=== PATIENT | male | born 1960 | race Caucasian/White ===

== ENCOUNTER 2024-07-24 08:45 | Outpatient (REF) | payer OTHER, SELFPAY ==
--- NOTE | ~2024-07-24 | XR_ITS ---
EXAMINATION: XR SHOULDER, RIGHT CLINICAL INFORMATION: M25.519 - Pain in unspecified shoulder COMPARISON: None available. TECHNIQUE: AP external rotation, Grashey, scapular Y, and axillary views of the right shoulder. FINDINGS: Marginal osteophyte formation in the inferior medial humeral head. Focal small rounded calcifications in the soft tissues in the anterior glenohumeral joint capsule best seen on the axial projection. No acute cortical disruption or malalignment. XR/XR shoulder RT min 2V IMPRESSION: Mild degenerative changes without acute fracture or dislocation. Questionable osteochondromatosis, glenohumeral joint. Electronically signed by: Steve Noble MD 07/24/2024 09:18 AM EDT
--- OUTSIDE RECORDS SUMMARY | 2024-07-25 08:59 | XMS_ITS | Clinical Summary ---
Author Organization [facility] Address [address] [place] [address] Phone Care Team Providers Care Teacher Emotionally Impaired Name Role Phone Angela Kohler MD Primary Care Provider [phone] Allergies No known active allergies Medications bisacodyL [...] Care Team Description 05/08/2024 Telephone Gastroenterology - [place] [address] [facility] [address] [place] [address] Brien Adamson, DO special procedure from Last 3 Months Immunizations Name Administration Dates Next Due Influenza trivalent, 0.5mL, preservative free (Fluarix; FluLaval; Fluzone) ages 6mo and older (Afluria) 3 years and older 01/17/2010,01/26/2009,01/15/2008 Tdap Tetanus diptheria acell ular pertussis (Boostrix; Adacel) 7yo and older 12/04/2022,01/15/2008 Surgical History Surgery Date Site/Laterality Comments COLONOSCOPY 2012 PROCEDURE: OK COLONOSCOPY FLX DX W/COLLJ SPEC WHEN PFRMD; COMMENT: normal COLONOSCOPY PROCEDURE: HISTORICAL COLONOSCOPY; COMMENT: Estrada; negative; for abd pain. KNEE ARTHROSCOPY W/ MENISCAL REPAIR PROCEDURE: OK ARTHROSCOPY KNEE W/MENISCUS RPR MEDIAL/LATERAL Medical History [...] LAB CHEMISTRY METHOD 07/18/2024 4:45 PM EDT [facility] Blood Venous blood specimen / Unknown Venipuncture / Unknown 07/18/2024 8:58 AM EDT 07/18/2024 8:58 AM EDT Narrative [facility] - 07/18/2024 4:45 PM EDT The Siemens Advia Centaur Chemiluminescent Immunoassay is used. Results obtained with different assay methods or kits cannot be used interchangeably. Results cannot be interpreted as absolute evidence of the presence or absence of malignant disease. us Prasad [facility] LAB BLOOD ORDERABLES Fin al Result [facility] [address] [place] [address], [place] [phone] * (ABNORMAL) Lipid panel with reflex to direct LDL (07/18/2024 8:58 AM EDT) [facility] Cholesterol 190 0 - 200 mg/dL LAB CHEMISTRY METHOD 07/18/2024 3:08 PM EDT [facility] Triglycerides 77 0 - 150 mg/dL LAB CHEMISTRY METHOD 07/18/2024 3:08 PM EDT [facility] HDL 65 >=40 mg/dL LAB CHEMISTRY METHOD 07/18/2024 3:08 PM EDT [facility] LDL Calculated 110(H) 0 - 100 mg/dL LAB CHEMISTRY METHOD 07/18/2024 3:08 PM EDT [facility] VLDL Cholesterol Juan Diego 15.4 mg/dL LAB CHEMISTRY METHOD 07/18/2024 3:08 PM EDT [facility] Non HDL Chol. (LDL+VLDL) 125 <145 mg/dL LAB CHEMISTRY METHOD 07/18/2024 3:08 PM EDT [facility] Chol/HDL Ratio 2.9 0.0 - 4.4 LAB CHEMISTRY METHOD 07/18/2024 3:08 PM EDT [facility] Blood Venous blood specimen / Unknown Venipuncture / Unknown 07/18/2024 8:58 AM EDT 07/18/2024 8:58 AM EDT us Prasad [facility] LAB BLOOD ORDERABLES Fin al Result [facility] [address] [place] [address], * Complete blood count (07/18/2024 8:58 AM EDT) WBC 7.7 4.8 - 10.8 K/mcL LAB HEMETOLOGY METHOD 07/18/2024 10:[address] [facility] RBC 5.10 4.50 - 5.50 M/[facility] LAB HEMETOLOGY METHOD 07/18/2024 10:[address] [facility] Hemoglobin 14.9 13.5 - 17.5 g/dL LAB HEMETOLOGY METHOD 07/18/2024 10:[address] [facility] Hematocrit 44.0 42.0 - 54.0 % LAB HEMETOLOGY METHOD 07/18/2024 10:[address] [facility] MCV 85.8 79.0 - 98.0 FL LAB HEMETOLOGY METHOD 07/18/2024 10:[address] [facility] MCH 29.0 27.0 - 32.0 pcg LAB HEMETOLOGY METHOD 07/18/2024 10:[address] [facility] MCHC 33.9 32.0 - 37.0 g/dL LAB HEMETOLOGY METHOD 07/18/2024 10:[address] [facility] RDW 13.3 11.0 - 15.0 % LAB HEMETOLOGY METHOD 07/18/2024 10:[address] [facility] Platelets 255 130 - 400 K/mcL LAB HEMETOLOGY METHOD 07/18/2024 10:17 AM EDT [facility] MPV 9.6 7.0 - 11.0 FL LAB HEMETOLOGY METHOD 07/18/2024 10:17 AM EDT [facility] NRBC 0.0 <1.0 % LAB HEMETOLOGY METHOD 07/18/2024 10:17 AM EDT [facility] NRBC Absolute 0.00 <0.10 K/mcL LAB HEMETOLOGY METHOD 07/18/2024 10:17 AM EDT [facility] Blood Venous blood specimen / Unknown Venipuncture / Unknown 07/18/2024 8:58 AM EDT 07/18/2024 8:58 AM EDT Pras[facility] LAB BLOOD ORDERABLES Fin al Result Performing Organization Address City/[facility]/ZIP Co de Phone Number [facility] [address] [place] [address], * Thyroid stimulating hormone (07/18/2024 8:58 AM EDT) Pathologist [facility] TSH 0.89 0.40 - 4.00 mcIU/mL LAB CHEMISTRY METHOD 07/18/2024 5:51 PM EDT [facility] Blood Venous blood specimen / Unknown Venipuncture / Unknown 07/18/2024 8:58 AM EDT 07/18/2024 8:58 AM EDT Prasad [facility] LAB BLOOD ORDERABLES Fin al Result [facility] [address] [place] [address], [place] [phone] * (ABNORMAL) Comprehensive metabolic panel (07/18/2024 8:58 AM EDT) Pathologist [facility] Sodium 141 133 - 145 mmol/L LAB CHEMISTRY METHOD 07/18/2024 3:[address] [facility] Potassium 4.6 3.5 - 5.5 mmol/L LAB CHEMISTRY METHOD 07/18/2024 3:[address] [facility] Chloride 108 96 - 110 mmol/L LAB CHEMISTRY METHOD 07/18/2024 3:[address] [facility] CO2 26 21 - 32 mmol/L LAB CHEMISTRY METHOD 07/18/2024 3:[address] [facility] Anion Gap 7 3 - 11 LAB CHEMISTRY METHOD 07/18/2024 3:[address] [facility] Glucose 107(H) 70 - 100 mg/dL LAB CHEMISTRY METHOD 07/18/2024 3:[address] [facility] BUN 18 5 - 25 mg/dL LAB CHEMISTRY METHOD 07/18/2024 3:[address] [facility] Creatinine 0.86 0.70 - 1.30 mg/dL LAB CHEMISTRY METHOD 07/18/2024 3:[address] [facility] eGFR 98 >=60 mL/min/1. 73m2 LAB CHEMISTRY METHOD 07/18/2024 3:[address] [facility] Comment:Calculation based on the Chronic Kidney Disease Epidemiology Collaboration (CKD-EPI) equation refit without adjustment for race. BUN/Creatinine Ratio 20.9 LAB CHEMISTRY METHOD 07/18/2024 3:[address] [facility] Calcium 9.2 8.5 - 10.5 mg/dL LAB CHEMISTRY METHOD 07/18/2024 3:[address] [facility] AST (SGOT) 22 10 - 42 unit/L LAB CHEMISTRY METHOD 07/18/2024 3:[address] [facility] ALT (SGPT) 43 10 - 60 unit/L LAB CHEMISTRY METHOD 07/18/2024 3:[address] [facility] Alkaline Phosphatase 95 42 - 121 unit/L LAB CHEMISTRY METHOD 07/18/2024 3:08 PM EDT [facility] Total Protein 7.2 6.0 - 8.0 g/dL LAB CHEMISTRY METHOD 07/18/2024 3:08 PM EDT [facility] Albumin 3.9 3.2 - 5.0 g/dL LAB CHEMISTRY METHOD 07/18/2024 3:08 PM EDT [facility] Total Bilirubin 0.4 0.0 - 1.4 mg/dL LAB CHEMISTRY METHOD 07/18/2024 3:08 PM EDT [facility] Blood Venous blood specimen / Unknown Venipuncture / Unknown 07/18/2024 8:58 AM EDT 07/18/2024 8:58 AM EDT Prasad [facility] LAB BLOOD ORDERABLES Fin al Result [facility] [address] [place] [address], * Hepatitis C Screening (11/11/2013) Pathologist [facility] Hepatitis C Screening abstracted Historical Provider HEALTH MAINTENANCE Final Result from Last 3 Months or Most Recently Relevant to Health Maintenance Insurance [facility] Care Teams Teacher Emotionally Impaired Relationship Specialty Start Date End Date Angela Kohler MD [address] [place] [id number] PCP - General 03/04/99
== END 2024-07-24 08:46 | disposition home or self-care (01) ==
LOC: HO.HOSX 08:45
PROVIDERS: Visit Provider Orthopaedic Surgery
DX: M25.511 Pain in right shoulder (principal)
CPT/HCPCS: 73030; 99202

== ENCOUNTER 2024-07-24 08:48 | Outpatient (AMB) | payer OTHER, SELFPAY ==
--- NOTE | 2024-07-24 08:51 | MHC.OFFVIS ---
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 since then he has had continued pain in the right shoulder. He has pain in bilateral shoulders which he believes is due to repetitive motions and heavy lifting while at work. This is a work related injury, he has been on light duty with weight restrictions which has helped his symptoms improve. He explains that he has sharp pains in the right shoulder while lifting, this causes him to drop things. 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 since then he has had continued pain in the right shoulder. He has pain in bilateral shoulders which he believes is due to repetitive motions and heavy lifting while at work. This is a work related injury, he has been on light duty with weight restrictions which has helped his symptoms improve. He explains that he has sharp pains in the right shoulder while lifting, this causes him to drop things. He felt this most recent incident occur in February while he was pulling a large wrench at work. He describes the pain as posterior subdeltoid pain. He had x-ray and MRI. [facility] Surgical History (Updated 07/24/24 @ 09:02 by Mine Hancock CMA) Hx of left knee surgery Hx of hernia repair Social History (Updated 07/24/24 @ 09:02 by Mine Hancock CMA) Current occupational status: employed Current occupation: [employer] Physical Exam Vital Signs: BMI result Body Mass Index 28.7 Const General: cooperative, healthy appearing, no acute distress and well groomed Orientation/consciousness: oriented to person and oriented to place HEENT Head: Yes normal to inspection, Yes normocephalic and Yes atraumatic Eyes General: appearance normal, both eyes and all related structures Alignment and Position: alignment normal Conjunctivae: conjunctivae normal EOM: EOMs intact bilaterally Neck Neck: Yes normal visual inspection and Yes trachea midline Resp Other: No rerpiratory distress Effort & Inspection: normal respiratory effort and able to speak in complete sentences Cardio Other: Palpable radial pulse with no appreciable rythmic abnormalities GI Other: No abdominal distension Back/Spine/Pelvis Cervical Spine: normal cervical lordosis and cervical ROM normal Skin General skin exam: no rashes or lesions noted Neuro General: oriented to person, oriented to place and gait normal Extrem Other: Shoulder: Normal to visual inspection with no obvious atrophy. He has a negative empty can bilaterally. Range of motion is 35 degrees of external rotation bilaterally/ 90 degrees of abduction bilaterally/combined abduction 100 50 degrees bilaterally/internal rotation to L5 bilaterally. Positive Ortiz and Neer Negative lift-off Results Reviewed Results Reviewed: MRI done at [facility] 05/20/24 of Right Shoulder IMPRESSION: 1. Advanced glenohumeral joint osteoarthritis with prominent reactive subchondral edema with joint effusion and synovitis. 2. Diffuse supraspinatus and infraspinatus tendinopathy with interstitial and bursal sided partial tearing. 3. Mild AC joint osteoarthritis with reactive edema. Assessment & Plan Assessment & Plan (1) Osteoarthritis of right shoulder: Code(s): M19.011 - Primary osteoarthritis, right shoulder Category: Medical Plan: This is a 64-year-old gentleman who works in a job that requires aggressive overhead lifting and pulling and torquing. He has right shoulder osteoarthritis and exacerbated this at a work injury last February. Over the past month he has been on restricted duty and this has improved his symptoms. His range of motion is reasonable considering his osteoarthritis and his rotator cuff is functioning. He has not yet done physical therapy. I think this is the 1st step in returning to work. I would like to see him back in 6-8 weeks. In the meantime he should continue to be off duty. I anticipate a return to light duty in 6-8 weeks. Plan PT, Follow up 8 weeks, Continue Light Duty: No lifting >20lbs, no overhead lifting. Orders: Orders XR shoulder RT min 2V Today M25.519 - Pain in unspecified shoulder PT Evaluation and Treatment Today M19.011 - Primary osteoarthritis, right shoulder Coding Level of Care Code New Pt Level 3 (10858) Diagnoses Osteoarthritis of right shoulder M19.011
[2024-07-24 08:57] VITALS: BMI 28.7
--- OUTSIDE RECORDS SUMMARY | 2024-07-24 09:15 | XMS_ITS | Clinical Summary ---
Author Organization [facility] Address [address] [place] [address] Phone Care Team Providers Care Power System Operator Name Role Phone Angela Kohler MD Primary Care Provider [phone] Allergies No known active allergies Medications bisacodyL (DULCOLAX) 5 mg EC tablet Take 2 tablets by mouth right before beginning bowel prep. See instructions provided by the office 2 tablet 5 Active polyethylene glycol (Golytely) 236-22.74-6.74 -5.86 gram solution Take 4L by mouth once for one dose. May substitue any PEG. Starting at 6PM the night before your procedure drink 1 8oz glasses at your own pace until you complete half of the gallon. Finish 2nd half of the gallon 5 hours before your procedure. 4000 mL 5 Active tadalafiL (CIALIS) 20 mg tablet Take 1 tablet (20 mg total) by mouth 1 (one) time each day if needed for erectile dysfunction. 12 tablet 5 06/17/19 26 Active atorvastatin (LIPITOR) 20 mg tablet TAKE 1 TABLET (20 MG TOTAL) BY MOUTH ONE TIME EACH DAY 90 tablet 1 5 Active Active Problems Problem Noted Date Diagnosed Date Ectatic thoracic aorta (CMS/HCC V24) 04/30/2018 Erectile dysfunction 08/13/2017 Kidney cysts 01/30/2011 Overview (02/01/2024): increasing in size as of 2010, ref to urology 2011, following with Dr. Cruz Pure hypercholesterolemia 01/21/2010 Assessment & Plan (04/10/2024 8:41 AM EST): Will check lipid panel. Patient is on atorvastatin 20 mg. Orders: Complete blood count; Future Comprehensive metabolic panel; Future Thyroid stimulating hormone; Future Lipid panel with reflex to direct LDL; Future Prostate specific antigen screen; Future Cardiac murmur 04/14/2008 Overview (02/01/2024): By Hx only, ECHO completely normal 2008, no need for prophylactic antibiotics. Hematuria 01/15/2008 Overview (02/01/2024): Followed by Urology, pt lost follow up 1999 Encounters Date Type Department Care Team Description 05/08/2024 Telephone Gastroenterology - [place] [address] [facility] [address] [place] [address] Brien Adamson, DO special procedure from Last 3 Months Immunizations Name Administration Dates Next Due Influenza trivalent, 0.5mL, preservative free (Fluarix; FluLaval; Fluzone) ages 6mo and older (Afluria) 3 years and older 01/17/2010,01/26/2009,01/15/2008 Tdap Tetanus diptheria acell ular pertussis (Boostrix; Adacel) 7yo and older 12/04/2022,01/15/2008 Surgical History Surgery Date Site/Laterality Comments COLONOSCOPY 2012 PROCEDURE: MO COLONOSCOPY FLX DX W/COLLJ SPEC WHEN PFRMD; COMMENT: normal COLONOSCOPY PROCEDURE: HISTORICAL COLONOSCOPY; COMMENT: Estrada; negative; for abd pain. KNEE ARTHROSCOPY W/ MENISCAL REPAIR PROCEDURE: MO ARTHROSCOPY KNEE W/MENISCUS RPR MEDIAL/LATERAL Medical History Medical History Date Comments Cardiac murmur 04/14/2008 DX:Cardiac murmu r; COMMENT: By HX, ECHO completely normal 2008, no need for prophylactic antibiotics. Pure hypercholesterolemia 01/21/2010 DX:Pur e hypercholesterolemia Family History Medical History Relation Name Comments Other: Brain caner Father no detail s Diabetes Mother Heart attack Uncle 2 moternal uncl es, in their 50' Relation Name Status Comments Brother 1 Alive Brother 2 Alive Father Mother Alive Sister Alive Uncle Social History Tobacco Use Types Packs/Day Years Used Date Smoking Tobacco: Former Cigarettes 1 36.2 0 02/12/1978 - 05/13/2014 Smokeless Tobacco: Never Alcohol Use Standard Drinks/Week Comments No 0 (1 standard drink = 0.6 oz pur e alcohol) Sex and Gender Information Value Date Recorded Sex Assigned at Not on file Legal Sex Male 4:09 PM EST Gender Identity Not on file Sexual Orientation Not on file Obstetrics History Last Filed Vital Signs Vital Sign Reading Time Taken Comments Blood Pressure 120/72 04/08/2024 3:02 PM EST Pulse 70 04/08/2024 3:02 PM EST Temperature 36.6 ??C (97.8 ??F) 04/08/2024 3:02 PM ES T Respiratory Rate 14 04/08/2024 3:02 PM EST Oxygen Saturation 97% 04/08/2024 3:02 PM EST Inhaled Oxygen Concentration - - Weight 92.1 kg (203 lb) 04/08/2024 3:02 PM EST Height 177.8 cm (5' 10 ) 04/08/2024 3:02 PM EST Body Mass Index 29.13 04/08/2024 3:02 PM EST Plan of Treatment Health Maintenance Due Date Last Done Comments Pneumococcal Vaccine: 50+ Years (1 of 1 - PCV) 2012 Zoster Vaccines (1 of 2) 2012 Colorectal Cancer Screening: Colonoscopy 01/21/2022 Depression Screening 01/21/2022 HIV Screening 01/21/2022 Lung Cancer Screening (Low Dose CT) 01/21/2022 Social Influencers of Health Screening 01/21/2022 COVID-19 Vaccine ( season) 2023 06/13/2020, 05/22/2020 Influenza Vaccine (Season Ended) 2024 01/05/2020, 01/17/2010, 01/26/2009, Additional history exists Cholesterol Screening (Lipid Panel) 07/18/2029 07/18/2024, 12/04/2022 DTaP,Tdap,and Td Vaccines (3 - Td or Tdap) 12/04/2032 12/04/2022, 01/15/2008 RSV Immunization Adult Patients (1 - 1-dose 75+ series) 2037 Hepatitis C Screening Completed 11/11/2013 HIB Vaccines Aged Out No longer eligi ble based on patient's age to complete this topic HPV Vaccines Aged Out No longer eligi ble based on patient's age to complete this topic Hepatitis A Vaccines Aged Out No long er eligible based on patient's age to complete this topic Hepatitis B Vaccines Aged Out No long er eligible based on patient's age to complete this topic IPV Vaccines Aged Out No longer eligi ble based on patient's age to complete this topic MMR Vaccines Aged Out No longer eligi ble based on patient's age to complete this topic Meningococcal ACWY Vaccine Aged Out N o longer eligible based on patient's age to complete this topic Meningococcal B Vaccine Aged Out No l onger eligible based on patient's age to complete this topic Pneumococcal Vaccine: Pediatrics (0 to 5 Years) and At-Risk Patients (6 to 64 Years) Aged Out No longer eligible based on patient's age to complete this topic RSV Immunization Patients Under 20 months Aged Out No longer eligible based on patient's age to complete this topic Varicella Vaccines Aged Out No longer eligible based on patient's age to complete this topic Procedures Procedure Name Priority Date/Time Associated Diagnosis Comments COMPLETE BLOOD COUNT Routine 07/18/2024 8:58 AM EDT Pure hypercholesterolem ia Screening PSA (prostate specific antigen) COMPREHENSIVE METABOLIC PANEL Routine 07/18/2024 8:58 AM EDT Pure hypercholesterolem ia Screening PSA (prostate specific antigen) THYROID STIMULATING HORMONE Routine 07/18/2024 8:58 AM EDT Pure hypercholesterolem ia Screening PSA (prostate specific antigen) LIPID PANEL WITH REFLEX TO DIRECT LDL Routine 07/18/2024 8:58 AM EDT Pure hypercholesterolem ia Screening PSA (prostate specific antigen) PROSTATE SPECIFIC ANTIGEN SCREEN Routine 07/18/2024 8:58 AM EDT Pure hypercholesterolem ia Screening PSA (prostate specific antigen) HM HEPATITIS C SCREENING Routine 11/11/2013 from Last 3 Months or Most Recently Relevant to Health Maintenance Results * Prostate specific antigen screen (07/18/2024 8:58 AM EDT) PSA 0.59 0.00 - 4.00 ng/mL LAB CHEMISTRY METHOD 07/18/2024 4:45 PM EDT [facility] Blood Venous blood specimen / Unknown Venipuncture / Unknown 07/18/2024 8:58 AM EDT 07/18/2024 8:58 AM EDT Narrative [facility] - 07/18/2024 4:45 PM EDT The Siemens Advia Centaur Chemiluminescent Immunoassay is used. Results obtained with different assay methods or kits cannot be used interchangeably. Results cannot be interpreted as absolute evidence of the presence or absence of malignant disease. us Prasad DE LA TORRE LAB BLOOD ORDERABLES Fin al Result [facility] [address] [place] [address], [place] [phone] * (ABNORMAL) Lipid panel with reflex to direct LDL (07/18/2024 8:58 AM EDT) [facility] Cholesterol 190 0 - 200 mg/dL LAB CHEMISTRY METHOD 07/18/2024 3:08 PM EDT [facility] Triglycerides 77 0 - 150 mg/dL LAB CHEMISTRY METHOD 07/18/2024 3:08 PM EDT [facility] HDL 65 >=40 mg/dL LAB CHEMISTRY METHOD 07/18/2024 3:08 PM EDT [facility] LDL Calculated 110(H) 0 - 100 mg/dL LAB CHEMISTRY METHOD 07/18/2024 3:08 PM EDT [facility] VLDL Cholesterol Juan Diego 15.4 mg/dL LAB CHEMISTRY METHOD 07/18/2024 3:08 PM EDT [facility] Non HDL Chol. (LDL+VLDL) 125 <145 mg/dL LAB CHEMISTRY METHOD 07/18/2024 3:08 PM EDT [facility] Chol/HDL Ratio 2.9 0.0 - 4.4 LAB CHEMISTRY METHOD 07/18/2024 3:08 PM EDT [facility] Blood Venous blood specimen / Unknown Venipuncture / Unknown 07/18/2024 8:58 AM EDT 07/18/2024 8:58 AM EDT us Prasad DE LA T[facility] LAB BLOOD ORDERABLES Fin al Result [facility] [address] [place] [address], * Complete blood count (07/18/2024 8:58 AM EDT) WBC 7.7 4.8 - 10.8 K/mcL LAB HEMETOLOGY METHOD 07/18/2024 10:17 AM [facility] RBC 5.10 4.50 - 5.50 M/[facility] LAB HEMETOLOGY METHOD 07/18/2024 10:17 AM [facility] Hemoglobin 14.9 13.5 - 17.5 g/dL LAB HEMETOLOGY METHOD 07/18/2024 10:17 AM [facility] Hematocrit 44.0 42.0 - 54.0 % LAB HEMETOLOGY METHOD 07/18/2024 10:17 AM [facility] MCV 85.8 79.0 - 98.0 FL LAB HEMETOLOGY METHOD 07/18/2024 10:17 AM [facility] MCH 29.0 27.0 - 32.0 pcg LAB HEMETOLOGY METHOD 07/18/2024 10:17 AM [facility] MCHC 33.9 32.0 - 37.0 g/dL LAB HEMETOLOGY METHOD 07/18/2024 10:17 AM [facility] RDW 13.3 11.0 - 15.0 % LAB HEMETOLOGY METHOD 07/18/2024 10:17 AM [facility] Platelets 255 130 - 400 K/mcL LAB HEMETOLOGY METHOD 07/18/2024 10:17 AM EDT [facility] MPV 9.6 7.0 - 11.0 FL LAB HEMETOLOGY METHOD 07/18/2024 10:17 AM EDT [facility] NRBC 0.0 <1.0 % LAB HEMETOLOGY METHOD 07/18/2024 10:17 AM EDT [facility] NRBC Absolute 0.00 <0.10 K/mcL LAB HEMETOLOGY METHOD 07/18/2024 10:17 AM EDT [facility] Blood Venous blood specimen / Unknown Venipuncture / Unknown 07/18/2024 8:58 AM EDT 07/18/2024 8:58 AM EDT Prasad DE [facility] LAB BLOOD ORDERABLES Fin al Result Performing Organization Address City/[facility]/ZIP Co de Phone Number [facility] [address] [place] [address], * Thyroid stimulating hormone (07/18/2024 8:58 AM EDT) Pathologist [facility] TSH 0.89 0.40 - 4.00 mcIU/mL LAB CHEMISTRY METHOD 07/18/2024 5:51 PM EDT [facility] Blood Venous blood specimen / Unknown Venipuncture / Unknown 07/18/2024 8:58 AM EDT 07/18/2024 8:58 AM EDT Prasad D ELA TORRE LAB BLOOD ORDERABLES Fin al Result [facility] [address] [place] [address], [place] [phone] * (ABNORMAL) Comprehensive metabolic panel (07/18/2024 8:58 AM EDT) Pathologist [facility] Sodium 141 133 - 145 mmol/L LAB CHEMISTRY METHOD 07/18/2024 3:08 PM [facility] Potassium 4.6 3.5 - 5.5 mmol/L LAB CHEMISTRY METHOD 07/18/2024 3:08 PM [facility] Chloride 108 96 - 110 mmol/L LAB CHEMISTRY METHOD 07/18/2024 3:08 PM [facility] CO2 26 21 - 32 mmol/L LAB CHEMISTRY METHOD 07/18/2024 3:08 PM [facility] Anion Gap 7 3 - 11 LAB CHEMISTRY METHOD 07/18/2024 3:08 PM [facility] Glucose 107(H) 70 - 100 mg/dL LAB CHEMISTRY METHOD 07/18/2024 3:08 PM [facility] BUN 18 5 - 25 mg/dL LAB CHEMISTRY METHOD 07/18/2024 3:08 PM [facility] Creatinine 0.86 0.70 - 1.30 mg/dL LAB CHEMISTRY METHOD 07/18/2024 3:08 PM [facility] eGFR 98 >=60 mL/min/1. 73m2 LAB CHEMISTRY METHOD 07/18/2024 3:08 PM [facility] Comment:Calculation based on the Chronic Kidney Disease Epidemiology Collaboration (CKD-EPI) equation refit without adjustment for race. BUN/Creatinine Ratio 20.9 LAB CHEMISTRY METHOD 07/18/2024 3:08 PM [facility] Calcium 9.2 8.5 - 10.5 mg/dL LAB CHEMISTRY METHOD 07/18/2024 3:08 PM [facility] AST (SGOT) 22 10 - 42 unit/L LAB CHEMISTRY METHOD 07/18/2024 3:08 PM [facility] ALT (SGPT) 43 10 - 60 unit/L LAB CHEMISTRY METHOD 07/18/2024 3:08 PM [facility] Alkaline Phosphatase 95 42 - 121 unit/L LAB CHEMISTRY METHOD 07/18/2024 3:08 PM EDT [facility] Total Protein 7.2 6.0 - 8.0 g/dL LAB CHEMISTRY METHOD 07/18/2024 3:08 PM EDT [facility] Albumin 3.9 3.2 - 5.0 g/dL LAB CHEMISTRY METHOD 07/18/2024 3:08 PM EDT [facility] Total Bilirubin 0.4 0.0 - 1.4 mg/dL LAB CHEMISTRY METHOD 07/18/2024 3:08 PM EDT [facility] Blood Venous blood specimen / Unknown Venipuncture / Unknown 07/18/2024 8:58 AM EDT 07/18/2024 8:58 AM EDT Prasad DE [facility] TOR[facility] LAB BLOOD ORDERABLES Fin al Result [facility] [address] [place] [address], * Hepatitis C Screening (11/11/2013) Pathologist [facility] Hepatitis C Screening abstracted Historical Provider HEALTH MAINTENANCE Final Result from Last 3 Months or Most Recently Relevant to Health Maintenance Insurance [facility] Care Teams Power System Operator Relationship Specialty Start Date End Date Angela Kohler MD [address] [place] [id number] PCP - General 03/04/99
== END 2024-07-24 09:31 | disposition home or self-care (01) ==
LOC: HO.HOS 08:49
PROVIDERS: PCP Internal Medicine; Visit Provider Orthopaedic Surgery
DX: M19.011 Primary osteoarthritis, right shoulder (principal)
CPT/HCPCS: 99203

== ENCOUNTER → 2024-07-24 08:50 | Outpatient (BNV) | payer OTHER, SELFPAY | PROVIDERS: Visit Provider Radiology Diagnostic Radiology | DX: M25.711 Osteophyte, right shoulder (principal) | CPT/HCPCS: 73030 ==

== ENCOUNTER 2024-09-16 15:11 | Outpatient (RCR) | payer OTHER, BC, SELFPAY ==
--- NOTE | 2024-08-12 17:54 | MHC.PT.EP ---
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 is referred to PT for eval and treat of OA of R shoulder and reports long Hx of shoulder B soreness from repetitive overhead work; reports he has been having pain of R > L shoulders though lately his L has been worse likely though compensating and his condition is resulting in decreased tolerance and ability for reaching his back for hygiene and dressing, reaching overhead and high shelves, lifting and carrying objects of weight, laying on his R side, as well as dressing pullovers and pushing/ pulling with affected arm secondary to decreased R shoulder ROM and strength, decreased scapular posture, TTP of posterolateral R shoulder, advanced glenohumeral joint osteoarthritis with prominent reactive subchondral edema with joint effusion and synovitis and diffuse supraspinatus and infraspinatus tendinopathy with partial tearing noted on imaging, and pain with activity. Pt is deemed an appropriate candidate to receive skilled PT services to address their physical impairments in order to improve their functional ability. Frequency and Duration: The patient will be seen 2 x/ wk x 6 wks. Short Term Goals: initiate home program. Improve baseline pain to < 5/10. Restaurant Supervisor Goals: I with home program. Pt will improve SPADI by at least 12 points. Pt will be able to reach high shelves with managed Sx. Pt will be able to reach his back for hygiene and dressing. Improve R ER strength by at least 1/2 MMT grade. Treatment Plan: Modalities to reduce pain, spasms and effusion. Manual therapy to restore motion and function. Therapeutic exercise to improve strength and flexibility. Neuromuscular re-education for posture and balance. Therapeutic activities to return to functional activities of daily living. Electronically signed by: Luis Armando Richards PT. Please sign and return to therapist. Thank you for your referral.
--- NOTE | 2024-09-17 14:48 | MHC.PT.DC ---
[facility] [place] Office [place] Office [place] Office [address] Gio Balbuena [address] [phone] F: [phone] F: [phone] F: [phone] F: [phone] Physical Therapy Discharge Report Diagnosis: Primary OA of R shoulder Date of Surgery: Date of Evaluation: 08/11/24 Date of Discharge: 09/17/24 Treatments to Date: 10 Cancellations to Date: No Shows to Date: Discharge Status: Achieved Goals Improved Function Independent with HEP Discharge Summary: Pt has met his therapeutic goals, is I with his HEP and is in agreement with DC at this time; Pt reports he can still feel discomfort in his shoulder though is improved. Electronically signed by: Luis Armando Richards PT. Please sign and return to therapist. Thank you for your referral.
== END 2024-09-17 14:41 | disposition home or self-care (01) ==
LOC: HO.PT 15:11
PROVIDERS: PCP Internal Medicine; Visit Provider Orthopaedic Surgery
DX: M19.011 Primary osteoarthritis, right shoulder (principal)
CPT/HCPCS: 97110; 97140; 97161; 97530

== ENCOUNTER 2024-09-18 09:05 | Outpatient (AMB) | payer OTHER, SELFPAY ==
--- NOTE | 2024-09-18 09:08 | MHC.OFFVIS ---
Intake Visit Reasons: OV-Right shoulder pain DOI 02/27/24-follow up Intake Note: Cal is a 64 year old right hand dominant male who presents today for a follow up of his right shoulder pain. This is work related. 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 We ordered physical therapy and placed him out of work with anticipation of return on light duty in 6-8 weeks. He continues to have pain that is not improving, right worse than the left. He has worked with physical therapy which he has had noticeable improvements in strength and ROM. His pain is onset by small random movements - for example while picking up his coffee todya he almost dropped it due to the pain. Allergies No Known Allergies Allergy (Unverified 07/24/24 09:01) HPI HPI OV-Right shoulder pain DOI 02/27/24-follow up: Details: Cal is a 64 year old right hand dominant male who presents today for a follow up of his right shoulder pain. This is work related. 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 We ordered physical therapy and placed him out of work with anticipation of return on light duty in 6-8 weeks. He continues to have pain that is not improving. He has worked with physical therapy which he has had noticeable improvements in strength and ROM. His pain is onset by small random movements - for example while picking up his coffee today he almost dropped it due to the pain. He does not feel that he is able to return to work in this state. 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 Physical Exam Const General: cooperative, healthy appearing, no acute distress and well groomed Orientation/consciousness: oriented to person and oriented to place HEENT Head: Yes normal to inspection, Yes normocephalic and Yes atraumatic Eyes General: appearance normal, both eyes and all related structures Alignment and Position: alignment normal Conjunctivae: conjunctivae normal EOM: EOMs intact bilaterally Neck Neck: Yes normal visual inspection and Yes trachea midline Resp Other: No rerpiratory distress Effort & Inspection: normal respiratory effort and able to speak in complete sentences Cardio Other: Palpable radial pulse with no appreciable rythmic abnormalities GI Other: No abdominal distension Back/Spine/Pelvis Cervical Spine: normal cervical lordosis and cervical ROM normal Skin General skin exam: no rashes or lesions noted Neuro General: oriented to person, oriented to place and gait normal Extrem Other: On exam he has 30 degrees of external rotation. He has 90 degrees of abduction with a 4+/5 empty can. He has 130 degrees of forward flexion with pain. He has a positive Ortiz and Neer. Minimal pain with passive range of motion. Results Reviewed Results Reviewed: I personally reviewed the MR images. MRI demonstrates moderate to severe glenohumeral osteoarthritis. There is partial-thickness undersurface rotator cuff tearing and bursal sided tearing suggestive of near full-thickness Assessment & Plan Assessment & Plan (1) Osteoarthritis of right shoulder: Code(s): M19.011 - Primary osteoarthritis, right shoulder Category: Medical Plan: (2) Rotator cuff tear, right: Code(s): M75.101 - Unspecified rotator cuff tear or rupture of right shoulder, not specified as traumatic Category: Medical Plan: 62-year-old gentleman involved in a workplace injury. He has been stagnated for the last 7 months and that he continues to have pain with overhead activity and he is not improving with conservative care. I reviewed options with him and I recommend a shoulder arthroscopy with a rotator cuff repair. I had a long discussion regarding his concomitant osteoarthritis. I feel however that his primary pain generator is coming from active abduction and is rotator cuff is not functioning well. I discussed this with him. He wants to try to get back to work but does not feel that he is able to in his current condition. I think this is the most likely way to get him back to work and improve his symptoms. We did discuss that this may not resolve all of his symptoms as he does have some osteoarthritis but he does not do heavy lifting and he has excellent range of motion and I think most of his pain is coming from his subacromial space and poor rotator cuff function. I discussed the risks, benefits and alternatives with the patient including, but not limited to, risk of infection, incomplete symptom resolution, nerve injury, medical complications associated with anesthesia. He expressed understanding and we will proceed forward accordingly. He can work light duty until surgery and at that point I anticipate 6-8 week of restricted duty followed by return to light duty. All his questions were answered. Coding Level of Care Code Est Pt Level 4 (37962) Diagnoses Osteoarthritis of right shoulder M19.011 Rotator cuff tear, right M75.101
--- OUTSIDE RECORDS SUMMARY | 2024-09-18 09:27 | XMS_ITS | Clinical Summary ---
Author Organization [facility] Address [address] [place] [address] Phone Care Team Providers Care Resin Maker Name Role Phone Angela Kohler MD Primary Care Provider [phone] Allergies No known active allergies Medications bisacodyL (DULCOLAX) 5 mg EC tablet Take 2 tablets by mouth right before beginning bowel prep. See instructions provided by the office 2 tablet 05/03/19 25 Active polyethylene glycol (Golytely) 236-22.74-6.74 -5.86 gram solution Take 4L by mouth once for one dose. May substitue any PEG. Starting at 6PM the night before your procedure drink 1 8oz glasses at your own pace until you complete half of the gallon. Finish 2nd half of the gallon 5 hours before your procedure. 4000 mL 05/03/19 25 Active atorvastatin (LIPITOR) 20 mg tablet TAKE 1 TABLET (20 MG TOTAL) BY MOUTH ONE TIME EACH DAY 90 tablet 1 06/24/19 25 Active tadalafiL (CIALIS) 20 mg tablet Take 1 tablet (20 mg total) by mouth 1 (one) time each day if needed for erectile dysfunction. 12 tablet 09/16/19 25 026 Active tadalafiL (CIALIS) 20 mg tablet Take 1 tablet (20 mg total) by mouth 1 (one) time each day if needed for erectile dysfunction. 12 tablet 06/17/19 25 025 Discontinued Active Problems Problem Noted Date Diagnosed Date [...] by Urology, pt lost follow up 1999 Immunizations Name Administration Dates Next Due Influenza trivalent, 0.5mL, preservative free (Fluarix; FluLaval; Fluzone) ages 6mo and older (Afluria) 3 years and older 01/17/2010,01/26/2009,01/15/2008 Tdap Tetanus diptheria acell ular pertussis (Boostrix; Adacel) 7yo and older 12/04/2022,01/15/2008 Surgical History Surgery Date Site/Laterality Comments COLONOSCOPY 2012 PROCEDURE: VT COLONOSCOPY FLX DX W/COLLJ SPEC WHEN PFRMD; COMMENT: normal COLONOSCOPY PROCEDURE: HISTORICAL COLONOSCOPY; COMMENT: Estrada; negative; for abd pain. KNEE ARTHROSCOPY W/ MENISCAL REPAIR PROCEDURE: VT ARTHROSCOPY KNEE W/MENISCUS RPR MEDIAL/LATERAL Medical History [...] 70 04/08/2024 3:02 PM EST Temperature 36.6 C (97.8 F) 04/08/2024 3:02 PM EST Respiratory Rate 14 04/08/2024 3:02 PM EST Oxygen Saturation 97% 04/08/2024 3:02 PM EST Inhaled Oxygen Concentration - - Weight 92.1 kg (203 lb) 04/08/2024 3:02 PM EST Height 177.8 cm (5' 10 ) 04/08/2024 3:02 PM EST Body Mass Index 29.13 04/08/2024 3:02 PM EST Plan of Treatment Upcoming Encounters Date Type Department Care Team (Late st Contact Info) Description 11/10/2024 2:30 PM EDT Office Visit Adult Medicine [facility] [address] [place] [phone] Angela Kohler MD [address] [place] [address] Health Maintenance Due Date Last Done Comments Pneumococcal Vaccine: 50+ Years (1 of 1 - PCV) 2012 Zoster Vaccines (1 of 2) 2012 Colorectal Cancer Screening: Colonoscopy 01/21/2022 HIV Screening 01/21/2022 Lung Cancer Screening (Low Dose CT) 01/21/2022 Social Influencers of Health Screening 01/21/2022 COVID-19 Vaccine ( season) 2023 06/13/2020, 05/22/2020 Depression Screening 02/13/2024 Influenza Vaccine (#1) 2024 , 01/17/2010, 01/26/2009, Additional history exists Cholesterol Screening [...] specific antigen screen (07/18/2024 8:58 AM EDT) Pathologist [facility] PSA 0.59 0.00 - 4.00 ng/mL LAB CHEMISTRY METHOD 07/18/2024 4:45 PM EDT [facility] Blood Venous blood specimen / Unknown Venipuncture / Unknown 07/18/2024 8:58 AM EDT 07/18/2024 8:58 AM EDT Narrative [facility] - 07/18/2024 4:45 PM EDT The Siemens [employer] Nationaur Chemiluminescent Immunoassay is used. Results obtained with different assay methods or kits cannot be used interchangeably. Results cannot be interpreted as absolute evidence of the presence or absence of malignant disease. us Prasad DE [facility] LAB BLOOD ORDERABLES Fin al Result [facility] [address] [place] [address], [place] [phone] * (ABNORMAL) Lipid panel with reflex to direct LDL (07/18/2024 8:58 AM EDT) Pathologist [facility] Cholesterol 190 0 - 200 mg/dL LAB CHEMISTRY METHOD 07/18/2024 3:08 PM EDT [facility] Triglycerides 77 0 - 150 mg/dL LAB CHEMISTRY METHOD 07/18/2024 3:08 PM EDT [facility] HDL 65 >=40 mg/dL LAB CHEMISTRY METHOD 07/18/2024 3:08 PM EDT [facility] LDL Calculated 110(H) 0 - 100 mg/dL LAB CHEMISTRY METHOD 07/18/2024 3:08 PM EDT [facility] VLDL Cholesterol Juan Diego 15.4 mg/dL LAB CHEMISTRY METHOD 07/18/2024 3:08 PM EDT [facility] Non HDL Chol. (LDL+VLDL) 125 <145 mg/dL LAB CHEMISTRY METHOD 07/18/2024 3:08 PM [facility] Chol/HDL Ratio 2.9 0.0 - 4.4 LAB CHEMISTRY METHOD 07/18/2024 3:08 PM [facility] Blood Venous blood specimen / Unknown Venipuncture / Unknown 07/18/2024 8:58 AM EDT 07/18/2024 8:58 AM EDT us Prasad [facility] LAB BLOOD ORDERABLES Fin al Result [facility] [address] [place] [address], * Complete blood count (07/18/2024 8:58 AM EDT) WBC 7.7 4.8 - 10.8 K/mcL LAB HEMETOLOGY METHOD 07/18/2024 10:17 AM [facility] RBC 5.10 4.50 - 5.50 M/mcL LAB HEMETOLOGY METHOD 07/18/2024 10:17 AM [facility] Hemoglobin 14.9 13.5 - 17.5 g/dL LAB HEMETOLOGY METHOD 07/18/2024 10:17 AM [facility] Hematocrit 44.0 42.0 - 54.0 % LAB HEMETOLOGY METHOD 07/18/2024 10:17 AM [facility] MCV 85.8 79.0 - 98.0 FL LAB HEMETOLOGY METHOD 07/18/2024 10:17 AM [facility] MCH 29.0 27.0 - 32.0 pcg LAB HEMETOLOGY METHOD 07/18/2024 10:17 AM [facility] MCHC 33.9 32.0 - 37.0 g/dL LAB HEMETOLOGY METHOD 07/18/2024 10:17 AM EDT [facility] RDW 13.3 11.0 - 15.0 % LAB HEMETOLOGY METHOD 07/18/2024 10:17 AM EDT [facility] Platelets 255 130 - 400 K/mcL LAB HEMETOLOGY METHOD 07/18/2024 10:17 AM EDT [facility] MPV 9.6 7.0 - 11.0 FL LAB HEMETOLOGY METHOD 07/18/2024 10:17 AM EDT [facility] NRBC 0.0 <1.0 % LAB HEMETOLOGY METHOD 07/18/2024 10:17 AM EDT [facility] NRBC Absolute 0.00 <0.10 K/mcL LAB HEMETOLOGY METHOD 07/18/2024 10:17 AM EDT [facility] Blood Venous blood specimen / Unknown Venipuncture / Unknown 07/18/2024 8:58 AM EDT 07/18/2024 8:58 AM EDT Prasad [facility] LAB BLOOD ORDERABLES Fin al Result [facility] [address] [place] [address], * Thyroid stimulating hormone (07/18/2024 8:58 AM EDT) TSH 0.89 0.40 - 4.00 mcIU/mL LAB CHEMISTRY METHOD 07/18/2024 5:51 PM EDT [facility] Blood Venous blood specimen / Unknown Venipuncture / Unknown 07/18/2024 8:58 AM EDT 07/18/2024 8:58 AM EDT Prasad [facility] LAB BLOOD ORDERABLES Fin al Result [facility] [address] [place] [address], [place] [phone] * (ABNORMAL) Comprehensive metabolic panel (07/18/2024 8:58 AM EDT) Sodium 141 133 - 145 mmol/L LAB CHEMISTRY METHOD 07/18/2024 3:08 PM [facility] Potassium 4.6 3.5 - 5.5 mmol/L LAB CHEMISTRY METHOD 07/18/2024 3:08 PM [facility] Chloride 108 96 - 110 mmol/L LAB CHEMISTRY METHOD 07/18/2024 3:08 PM [facility] CO2 26 21 - 32 mmol/L LAB CHEMISTRY METHOD 07/18/2024 3:08 PM [facility] Anion Gap 7 3 - 11 LAB CHEMISTRY METHOD 07/18/2024 3:08 PM [facility] Glucose 107(H) 70 - 100 mg/dL LAB CHEMISTRY METHOD 07/18/2024 3:08 PM [facility] BUN 18 5 - 25 mg/dL LAB CHEMISTRY METHOD 07/18/2024 3:08 PM [facility] Creatinine 0.86 0.70 - 1.30 mg/dL LAB CHEMISTRY METHOD 07/18/2024 3:08 PM [facility] eGFR 98 >=60 mL/min/1. 73m2 LAB CHEMISTRY METHOD 07/18/2024 3:08 PM [facility] Comment:Calculation based on the Chronic Kidney Disease Epidemiology Collaboration (CKD-EPI) equation refit without adjustment for race. BUN/Creatinine Ratio 20.9 LAB CHEMISTRY METHOD 07/18/2024 3:08 PM [facility] Calcium 9.2 8.5 - 10.5 mg/dL LAB CHEMISTRY METHOD 07/18/2024 3:08 PM [facility] AST (SGOT) 22 10 - 42 unit/L LAB CHEMISTRY METHOD 07/18/2024 3:08 PM [facility] ALT (SGPT) 43 10 - 60 unit/L LAB CHEMISTRY METHOD 07/18/2024 3:08 PM EDT [facility] Alkaline Phosphatase 95 42 - 121 unit/L LAB CHEMISTRY METHOD 07/18/2024 3:08 PM EDT [facility] Total Protein 7.2 6.0 - 8.0 g/dL LAB CHEMISTRY METHOD 07/18/2024 3:08 PM EDT [facility] Albumin 3.9 3.2 - 5.0 g/dL LAB CHEMISTRY METHOD 07/18/2024 3:08 PM EDT [facility] Total Bilirubin 0.4 0.0 - 1.4 mg/dL LAB CHEMISTRY METHOD 07/18/2024 3:08 PM EDT [facility] Blood Venous blood specimen / Unknown Venipuncture / Unknown 07/18/2024 8:58 AM EDT 07/18/2024 8:58 AM EDT Prasad [facility] LAB BLOOD ORDERABLES Fin al Result [facility] [address] [place] [address], * Hepatitis C Screening (11/11/2013) Pathologist [facility] Hepatitis C Screening abstracted Historical Provider HEALTH MAINTENANCE Final Result from Last 3 Months or Most Recently Relevant to Health Maintenance Insurance [facility] Care Teams Resin Maker Relationship Specialty Start Date End Date Angela Kohler MD [address] [place] [address] PCP - General 03/04/99
== END 2024-09-18 09:42 | disposition home or self-care (01) ==
LOC: HO.HOS 09:05
PROVIDERS: PCP Internal Medicine; Visit Provider Orthopaedic Surgery
DX: M19.011 Primary osteoarthritis, right shoulder (principal); M75.101 Unspecified rotator cuff tear or rupture of right shoulder, not specified as traumatic
CPT/HCPCS: 99214

== ENCOUNTER → 2024-09-18 09:05 | Outpatient (BNVA) | payer OTHER, SELFPAY | PROVIDERS: PCP Internal Medicine; Visit Provider Orthopaedic Surgery | DX: M25.511 Pain in right shoulder (principal); M19.011 Primary osteoarthritis, right shoulder; M75.101 Unspecified rotator cuff tear or rupture of right shoulder, not specified as traumatic | CPT/HCPCS: 99212 ==

== ENCOUNTER → 2024-11-28 08:25 | Outpatient (BNVA) | payer OTHER, SELFPAY | PROVIDERS: PCP Internal Medicine; Visit Provider Internal Medicine | DX: S46.912A Strain of unspecified muscle, fascia and tendon at shoulder and upper arm level, left arm, initial encounter (principal); X50.3XXA Overexertion from repetitive movements, initial encounter | CPT/HCPCS: 99204 ==

== ENCOUNTER 2024-12-04 13:38 | Outpatient (REF) | payer OTHER, SELFPAY ==
--- NOTE | ~2024-12-04 | XR_ITS ---
EXAMINATION: XR SHOULDER, LEFT CLINICAL INFORMATION: M25.519 - Pain in unspecified shoulder COMPARISON: None available. TECHNIQUE: Three views of the left shoulder. FINDINGS: Normal bone mineralization. No fracture, dislocation, or suspicious bone lesion. Normal alignment. The glenohumeral joint demonstrates moderate degenerative arthritis with significant joint space loss, and small to moderate-sized undersurface arthritic spurs. There is subtle chondrocalcinosis of the humeral articular cartilage. The AC joint demonstrates minimal spurring. There is a neutral lateral acromion. No undersurface spurring. The subacromial space is preserved. Remainder of the soft tissue and bony structures appear normal. XR/XR shoulder LT min 2V IMPRESSION: 1. No acute bony or soft tissue abnormalities. 2. Moderate osteoarthrosis of the left glenohumeral joint. Chondrocalcinosis of the humeral cartilage is noted. 3. Mild degenerative arthritis of the AC joint. Electronically signed by: Santos Padilla MD 12/04/2024 02:46 PM EDT
--- OUTSIDE RECORDS SUMMARY | 2024-12-04 17:34 | XMS_ITS | Clinical Summary ---
Author Organization [facility] Address [address] [place] [phone] Phone Care Team Providers Care Cold Water Machine Operator Name Role Phone Pcp, Unknown Primary Care Provider Unavailabl e Allergies No known active allergies Medications atorvastatin (LIPITOR) 20 MG tablet Take 20 mg by mouth. 5 Active bisacodyl (DULCOLAX) 5 mg EC tablet Take 2 tablets by mouth right before beginning bowel prep. See instructions provided by the office 5 Active nystatin-triamc inolone cream Apply to affect area twice a day for 7-14 days then as needed for rash. 5 01/10/20 25 Active tadalafiL (CIALIS) 20 MG tablet Take 20 mg by mouth. 5 09/16/19 26 Active diclofenac sodium (VOLTAREN) 75 MG EC tablet Take 1 tablet (75 mg total) by mouth 2 (two) times a day. 30 tablet 5 Active Encounters Date Type Department Care Team Description 11/19/2024 8:50 AM EDT Office Visit [facility] at [address] [id number] Tory Oropeza NP Acute pain of left shoulder (Primary Dx) 11/19/2024 8:27 AM EDT - 11/19/2024 11:59 PM EDT Hospital Encounter [facility] [address] [place] [phone] Tory Oropeza NP Discharge Disposition: Home or Self Care from Last 3 Months Social History Tobacco Use Types Packs/Day Years Used Date Smoking Tobacco: Never Assessed Education Answer Date Recorded Are you interested in more education? Not on adrián e 11/19/2024 Are you concerned about learning? Not on file 11/19/2024 No 11/19/2024 No 11/19/2024 Digital Access Answer Date Recorded No 11/19/2024 No 11/19/2024 Reliable internet access at home? Not on file 11/19/2024 Device with a working camera? Not on file Sex and Gender Information Value Date Recorded Sex Assigned at Not on file Legal Sex Male 8:11 AM EDT Gender Identity Not on file Sexual Orientation Not on file Last Filed Vital Signs Vital Sign Reading Time Taken Comments Blood Pressure 134/87 11/19/2024 9:27 AM EDT Pulse 66 11/19/2024 9:27 AM EDT Temperature 36.4 C (97.6 F) 11/19/2024 9:27 AM EDT Respiratory Rate 17 11/19/2024 9:27 AM EDT Oxygen Saturation 100% 11/19/2024 9:27 AM EDT Inhaled Oxygen Concentration - - Weight - - Height - - Body Mass Index - - Plan of Treatment Health Maintenance Due Date Last Done Comments DEPRESSION SCREENING 1974 SMOKING Hx and SMOKELESS TOBACCO SCREENING 1975 HEPATITIS C SCREENING 1980 HIV ONE-TIME SCREENING (18-65 YEARS) 1980 COLONOSCOPY 2007 FIT TEST 2007 FOBT 2007 SIGMOIDOSCOPY 2007 VIRTUAL COLONOSCOPY 2007 PNEUMOCOCCAL VACCINES (50+ years) (1 of 1 - PCV) 2012 ZOSTER VACCINES (1 of 2) 2012 INFLUENZA VACCINE (#1) 2024 , 01/17/2010, 01/26/2009, Additional history exists COVID-19 VACCINE ( season) 2024 06/13/2020, 05/22/2020 COLOGUARD 11/10/2027 11/09/2024 COLORECTAL CANCER SCREENING 11/10/2027 LIPID PANEL 07/18/2029 07/18/2024 Adult Td,Tdap Booster 12/04/2032 12/04/2022, 008 RSV VACCINE (1 - 1-dose 75+ series) 2037 HEPATITIS A VACCINES Aged Out No long er eligible based on patient's age to complete this topic HIB VACCINES Aged Out No longer eligi ble based on patient's age to complete this topic MENINGOCOCCAL VACCINES (ACWY) Aged Out No longer eligible based on patient's age to complete this topic MENINGOCOCCAL VACCINES (B) Aged Out N o longer eligible based on patient's age to complete this topic Medical Devices Not on file Procedures Procedure Name Priority Date/Time Associated Diagnosis Comments XR SHOULDER 2 VIEWS (LEFT) Urgent/patient waiting 11/19/2024 8:30 AM EDT Acute pain of left shoulder from Last 3 Months Results * XR SHOULDER 2 VIEWS (LEFT) (11/19/2024 8:30 AM EDT) Anatomical Region Laterality Modality Shoulder Left Computed Radiogr aphy 11/19/2024 9:13 AM EDT Impressions 11/19/2024 9:14 AM EDT No fracture or dislocation. Severe degenerative changes. Narrative 11/19/2024 9:14 AM EDT XR SHOULDER 2 OR MORE VIEWS (LEFT) Referring clinician's provided indication for this examination in Epic: Pain COMPARISON: None. FINDINGS: No acute fracture or dislocation. Severe degenerative changes of the glenohumeral joint. Mild degenerative changes of the acromioclavicular joint. Fluffy calcifications over the lateral aspect of the humeral head could represent calcific tendinosis. Imaged left lung is clear. Procedure Note Justyna Franklin MD - 11/19/2024 XR SHOULDER 2 OR MORE VIEWS (LEFT) Referring clinician's provided indication for this examination in Epic:Pain COMPARISON: None. FINDINGS: No acute fracture or dislocation. Severe degenerative changes of theglenohumeral joint. Mild degenerative changes of the acromioclavicularjoint. Fluffy calcifications over the lateral aspect of the humeral headcould represent calcific tendinosis. Imaged left lung is clear. IMPRESSION: No fracture or dislocation. Severe degenerative changes. Tory Nunn Oropeza [facility] TILER IMG XR UPPER EXTREMITY Fin al Result from Last 3 Months Insurance [facility] [place] [facility] [place] [facility] [place] [facility] [place] [facility] [place] [address] [facility] Care Teams Cold Water Machine Operator Relationship Specialty Start Date End Date Pcp, Unknown PCP - General 11/19/24 Additional Source Comments The information contained in this document represents components of the legal health record. It is not the complete legal health record.[facility]
--- OUTSIDE RECORDS SUMMARY | 2024-12-04 17:34 | XMS_ITS | Clinical Summary ---
Author Organization [facility] Address [address] [place] [address] Phone Care Team Providers Care [employer] Name Role Phone Angela Kohler MD Primary Care Provider [phone] Allergies No known active allergies Medications bisacodyL [...] before your procedure. 4000 mL 5 Active atorvastatin (LIPITOR) 20 mg tablet TAKE 1 TABLET (20 MG TOTAL) BY MOUTH ONE TIME EACH DAY 90 tablet 1 5 Active tadalafiL (CIALIS) 20 mg tablet Take 1 tablet (20 mg total) by mouth 1 (one) time each day if needed for erectile dysfunction. 12 tablet 5 09/16/19 26 Active nystatin-triamc inolone (MYCOLOG II) cream Apply to affect area twice a day for 7-14 days then as needed for rash. 15 g 1 5 01/10/20 25 Active Active Problems Problem Noted Date Diagnosed [...] Encounters Date Type Department Care Team Description 11/28/2024 2:30 PM EDT Ancillary Procedure [facility] [address] [place] [address] Tachycardia 11/10/2024 2:30 PM EDT Office Visit Adult Medicine [address] [address] Angela Kohler MD Rash (Primary Dx); Pure hypercholesterolemia ; Hyperglycemia; Tachycardia from Last 3 Months Immunizations Immunization Administration Dates Next Due Influenza trivalent, 0.5mL, preservative free (Fluarix; FluLaval; Fluzone) ages 6mo and older (Afluria) 3 years and older 01/17/2010,01/26/2009,01/15/2008 Tdap Tetanus diptheria acell ular pertussis (Boostrix; Adacel) 7yo and older 12/04/2022,01/15/2008 Surgical History Surgery Date Site/Laterality Comments COLONOSCOPY 2012 PROCEDURE: IN COLONOSCOPY FLX DX W/COLLJ SPEC WHEN PFRMD; COMMENT: normal COLONOSCOPY PROCEDURE: HISTORICAL COLONOSCOPY; COMMENT: [place]; negative; for abd pain. KNEE ARTHROSCOPY W/ MENISCAL REPAIR PROCEDURE: IN ARTHROSCOPY KNEE W/MENISCUS RPR MEDIAL/LATERAL Medical History [...] 0 02/12/1978 - 05/13/2014 Smokeless Tobacco: Never Tobacco Cessation:Counseling Given: Not Answered Alcohol Use Standard Drinks/Week Comments No 0 (1 standard drink = 0.6 oz pur e alcohol) Sex and Gender Information Value Date Recorded Sex Assigned at Not on file Legal Sex Male 4:09 PM EST Gender Identity Not on file Sexual Orientation Not on file Obstetrics History Last Filed Vital Signs Vital Sign Reading Time Taken Comments Blood Pressure 129/76 11/10/2024 2:38 PM EDT Pulse 60 11/10/2024 2:38 PM EDT Temperature 36.6 C (97.8 F) 04/08/2024 3:02 PM EST Respiratory Rate 16 11/10/2024 2:38 PM EDT Oxygen Saturation 97% 04/08/2024 3:02 PM EST Inhaled Oxygen Concentration - - Weight 90.3 kg (199 lb) 11/10/2024 2:38 PM EDT Height 179.1 cm (5' 10.5 ) 11/10/2024 2:38 PM ED T Body Mass Index 28.15 11/10/2024 2:38 PM EDT Plan of Treatment Health Maintenance Due Date Last Done Comments Pneumococcal Vaccine: 50+ Years (1 of 1 - PCV) 2012 Zoster Vaccines (1 of 2) 2012 HIV Screening 01/21/2022 Lung Cancer Screening (Low Dose CT) 01/21/2022 Social Influencers of Health Screening 01/21/2022 Depression Screening 02/13/2024 COVID-19 Vaccine ( season) 2024 06/13/2020, 05/22/2020 Influenza Vaccine (#1) 2024 , 01/17/2010, 01/26/2009, Additional history exists Colorectal Cancer Screening: FIT-DNA (Cologuard) 11/10/2027 11/09/2024, 11/09/2024 Cholesterol Screening (Lipid Panel) 11/28/2029 11/28/2024, 07/18/2024, 12/04/2022 DTaP,Tdap,and Td Vaccines (3 - [...] Procedure Name Priority Date/Time Associated Diagnosis Comments CARDIAC HOLTER MONITOR (REPORT GENERATED IN HOUSE) Routine 11/28/2024 2:25 PM EDT Tachycardia LIPID PANEL WITH REFLEX TO DIRECT LDL Routine 11/28/2024 7:41 AM EDT Pure hypercholesterolemia HEMOGLOBIN A1C Routine 11/28/2024 7:41 AM EDT Hyperglycemia HM HEPATITIS C SCREENING Routine 11/11/2013 from Last 3 Months or Most Recently Relevant to Health Maintenance Results * CARDIAC HOLTER MONITOR (REPORT GENERATED IN HOUSE) (11/28/2024 2:25 PM EDT) Anatomical Region Laterality Modality Cardiac Diagnost ic Narrative 12/02/2024 1:31 PM EDT [facility]PART[facility] [address] [facility], [place] [address], [place] [address] TEL: FAX: Type of Test: 48 Hour Holter Monitor Date of Test: 11/28/2024 Ordering Provider: Angela Kohler MD Reason for Test: Tachycardia Findings: 1: Normal Sinus Rhythm and periods of Sinus Bradycardia. Intermittent First Degree AV Block. 2: Heart rate range was 43-160 bpm with an average of 69 bpm. Total time in Sinus Bradycardia: 19 hrs 02 mins. 3: Occasional PACs. Rare atrial pairs and one 6-beat atrial run with heart rate of 126 bpm. 4: Rare PVCs, aberrantly conducted beats, and one couplet. 5: No significant pauses noted, longest R-R was 1.7 seconds at 4:21 AM. 6: Diary returned with no symptoms noted. us Angela Kohler MD CV CARDIAC SERVICES PROCEDURES F inal Result * Lipid panel with reflex to direct LDL (11/28/2024 7:41 AM EDT) Cholesterol 169 0 - 200 mg/dL LAB CHEMISTRY METHOD 11/28/2024 12:04 PM EDT [facility] Triglycerides 53 0 - 150 mg/dL LAB CHEMISTRY METHOD 11/28/2024 12:04 PM EDT [facility] HDL 62 >=40 mg/dL LAB CHEMISTRY METHOD 11/28/2024 12:04 PM EDT [facility] LDL Calculated 96 0 - 100 mg/dL LAB CHEMISTRY METHOD 11/28/2024 12:04 PM EDT [facility] Comment:Estimated LDL Calcul ated using equation: Total cholesterol - HDL cholesterol - (Triglycerides/5) VLDL Cholesterol Juan Diego 10.6 mg/dL LAB CHEMISTRY METHOD 11/28/2024 12:04 PM EDT [facility] Non HDL Chol. (LDL+VLDL) 107 <145 mg/dL LAB CHEMISTRY METHOD 11/28/2024 12:04 PM EDT [facility] Chol/HDL Ratio 2.7 0.0 - 4.4 LAB CHEMISTRY METHOD 11/28/2024 12:04 PM EDT [facility] Blood Venous blood specimen / Unknown Venipuncture / Unknown 11/28/2024 7:41 AM EDT 11/28/2024 7:41 AM EDT us Angela Kohler MD LAB BLOOD ORDERABLES Final Resul t Performing Organization Address [facility] Co de Phone Number [facility] [address] [place] [address], [place] [phone] * Hemoglobin A1c (11/28/2024 7:41 AM EDT) [facility] Hemoglobin A1C 5.7 <6.5 % LAB CHEMISTRY METHOD 11/28/2024 12:36 PM EDT [facility] Mean Bld Glu Estim. 117 mg/dL LAB CHEMISTRY METHOD 11/28/2024 12:36 PM EDT [facility] Blood Venous blood specimen / Unknown Venipuncture / Unknown 11/28/2024 7:41 AM EDT 11/28/2024 7:41 AM EDT us Angela Kohler MD LAB BLOOD ORDERABLES Final Resul t Performing Organization Address City/[facility]/ZIP Co de Phone Number [facility] [address] [place] [address], [place] [phone] * Hepatitis C Screening (11/11/2013) [facility] Hepatitis C Screening abstracted us Steve Mane MD HEALTH MAINTENANCE Final Result from Last 3 Months or Most Recently Relevant to Health Maintenance Insurance [facility] Care Teams [employer] Relationship Specialty Start Date End Date Angela Kohler MD [address] [place] [phone] PCP - General 03/04/99
== END 2024-12-04 13:39 | disposition home or self-care (01) ==
LOC: HO.HOSX 13:38
PROVIDERS: Visit Provider Physician Assistant
DX: M19.012 Primary osteoarthritis, left shoulder (principal); M25.512 Pain in left shoulder
CPT/HCPCS: 20610; 73030; 99212; J0665; J1100; J2003

== ENCOUNTER 2024-12-04 14:19 | Outpatient (AMB) | payer OTHER, SELFPAY ==
--- NOTE | 2024-12-04 14:40 | MHC.OFFVIS ---
Intake Visit Reasons: OV - LT shoulder pain Intake Note: Cal is a 64 year old right hand dominant male who presents today for a evaluation of his left shoulder pain. Patient reports ongoing pain since his first injury back in April, however patient re-injured his shoulder on 11/19/24. 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 Patient mentions that his pain is still ongoing but its subsiding a little bit. He has been taking tylenol with relief. 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 Vicente is a 64-year-old right hand dominant male who presents today for a evaluation of his left shoulder pain. Patient reports ongoing pain since his first injury back in April, however patient re-injured his shoulder on 11/19/24. 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 Patient mentions that his pain is still ongoing but its subsiding a bit. He has been taking tylenol with relief. [facility] Medical History (Updated 12/04/24 @ 15:24 by Berna Connell PA-C) Anesthesia complication Arthritis Loud snoring Needle phobia Ectatic thoracic aorta Erectile dysfunction Renal cyst Elevated cholesterol Surgical History (Updated 11/26/24 @ 13:11 by Janae Castro RN) Hx of excision of mass H/O colonoscopy Hx of left knee surgery Hx of hernia repair Social History (Updated 12/04/24 @ 14:46 by Jeff Fregoso) Are you a primary lawn care technician to a significant other at home: No Do you presently have visiting nurse or other home services: No Alcohol intake: never Patient Tobacco Use Status: Former Tobacco user Tobacco use type: Cigarette Years Smoked: 35 Current occupational status: employed 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 4-5 strength with empty can. Positive cross-body reach. NVI. Psych Appearance: grossly normal Mental Status: mental status grossly normal Attitude: cooperative Office Procedures AMB Joint Injection/Aspiration Joint Injection/Aspiration Primary Site: left shoulder Prep: site was prepped using aseptic technique, ethochloride spray was applied and injection warnings given Injected: 40 mg of, with 3 mL of, 1% plain lidocaine, 0.25% bupivacaine, in the subcromial space and decadron Approach Used: posterolateral Procedure: The patient tolerated the procedure well, but had some pain with the injection and there was some relief with the local anesthesia Coding 95810 - Large joint Procedure code (CPT) selection complete Assessment & Plan Assessment & Plan (1) Arthritis of left glenohumeral joint: Code(s): M19.012 - Primary osteoarthritis, left shoulder Category: Medical Plan The patient was offered a cortisone injection in the left shoulder. The patient was explained the risks, benefits, and alternatives to receiving this injection. After receiving consent for the injection, the patient had the procedure done while in the office today. The patient tolerated the procedure well with no complications. If the cortisone injection does not give the patient any relief we can move forward with glenohumeral joint injection versus MRI imaging to further evaluate the integrity of the left shoulder and surrounding structures. Follow-up will be PRN, or sooner if needed X-rays of the left shoulder which were obtained while in the office today and were reviewed by me, Berna Connell PA-C, revealed glenohumeral joint osteoarthritis. Orders: Orders XR shoulder LT min 2V Today M25.519 - Pain in unspecified shoulder Coding Level of Care Code Est Pt Level 3 (88764) Diagnoses Arthritis of left glenohumeral joint M19.012 CPT Codes Coding - 03252 Large joint: 70597 - Large joint ([id number])
== END 2024-12-04 15:19 | disposition home or self-care (01) ==
LOC: HO.HOS 14:20
PROVIDERS: PCP Internal Medicine; Visit Provider Physician Assistant
DX: M19.012 Primary osteoarthritis, left shoulder (principal)
CPT/HCPCS: 20610; 99213

== ENCOUNTER → 2024-12-04 14:27 | Outpatient (BNV) | payer OTHER, SELFPAY | PROVIDERS: Visit Provider Radiology Diagnostic Radiology | DX: M19.012 Primary osteoarthritis, left shoulder (principal); M11.212 Other chondrocalcinosis, left shoulder | CPT/HCPCS: 73030 ==

== ENCOUNTER 2025-01-29 17:04 | Outpatient (REF) | payer OTHER, SELFPAY ==
--- NOTE | ~2025-01-29 | MR_ITS ---
EXAMINATION: MRI Shoulder without contrast, left TECHNIQUE: Multiplanar multisequence MR imaging through an upper extremity joint without contrast. INDICATION: Left shoulder pain with decreased range of motion since April 2023, reinjured at work November 2024, pain and intermittent swelling, partial relief with steroid injection PRIOR: X-ray on 12/04/2024 FINDINGS: Rotator Cuff: There is intrasubstance fluid signal within supraspinatus tendon 2 cm from the footprint. There is high intermediate signal within the tendon near the footprint. There is surface fraying involving anterior infraspinatus tendon Labrum: Superior labrum is degenerated, frayed, and torn. Posterior labrum is detached. Long biceps tendon: The long biceps tendon is intact and not displaced from the groove. Acromioclavicular joint: Mild hypertrophic changes are present. There is intermediate signal within the joint. Acromial morphology is curved, type II. There is no subacromial spur. There is no subacromial subdeltoid bursal effusion. Axillary pouch: The axillary pouch is intact. Articular cartilage: There is moderate thinning of articular cartilage in the central humeral head, greater than 50%. There is deep partial full-thickness loss of cartilage in the lower half of glenoid. On recent x-ray, there is chondrocalcinosis involving the humeral head. Bones/Marrow: Moderate size overhanging osteophyte is present involving medial humeral head. 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 Tendinopathy within supraspinatus infraspinatus tendon with intrasubstance tearing of supraspinatus tendon and surface fraying of infraspinatus tendon. Labrum is degenerated, frayed, and torn between 11-6:00. Mild fatty streaking of teres minor muscle is likely related to a remote viral neuritis or quadrilateral space syndrome. Mild AC joint arthropathy. Electronically signed by: Jordon Weaver MD 01/30/2025 09:50 AM [facility]
--- OUTSIDE RECORDS SUMMARY | 2025-01-29 19:49 | XMS_ITS | Clinical Summary ---
Author Organization [facility] Address [address] [place] [address] Phone Care Team Providers Care Healthcare Analyst Name Role Phone Angela Kholer MD Primary Care Provider Allergies No known active allergies Medications bisacodyL [...] dysfunction. 12 tablet 5 09/16/19 26 Active atorvastatin (LIPITOR) 20 mg tablet TAKE 1 TABLET (20 MG TOTAL) BY MOUTH ONCE DAILY 90 tablet 1 5 Active nystatin-triam cinolone (MYCOLOG II) cream Apply to affect area twice a day for 7-14 days then as needed for rash. 15 g 1 5 01/10/20 25 Active Problems Problem Noted Date Diagnosed Date Ectatic thoracic aorta 04/30/2018 Erectile dysfunction 08/13/2017 Kidney cysts 01/30/2011 [...] Description 11/28/2024 2:30 PM EDT Ancillary Procedure [facility] [address] [place] [address] Tachycardia 11/10/2024 2:30 PM EDT Office Visit Adult Medicine [address] [address] Angela Kohler MD Rash (Primary Dx); Pure hypercholesterolemia ; Hyperglycemia; Tachycardia from Last 3 Months Immunizations Immunization Administration Dates Next Due Influenza trivalent, 0.5mL, preservative free (Fluarix; FluLaval; Fluzone) ages 6mo and older (Afluria) 3 years and older 01/17/2010,01/26/2009,01/15/2008 Tdap Tetanus diptheria acell ular pertussis (Boostrix; Adacel) 7yo and older 12/04/2022,01/15/2008 Surgical History Surgery Date Site/Laterality Comments COLONOSCOPY 2012 PROCEDURE: [place] COLONOSCOPY FLX DX W/COLLJ SPEC WHEN PFRMD; COMMENT: normal COLONOSCOPY PROCEDURE: HISTORICAL COLONOSCOPY; COMMENT: [place]; negative; for abd pain. KNEE ARTHROSCOPY W/ MENISCAL REPAIR PROCEDURE: [place] ARTHROSCOPY KNEE W/MENISCUS RPR MEDIAL/LATERAL Medical History [...] Diagnost ic Narrative 12/02/2024 1:[address] [facility]PARTMENT [address] [facility], [id number], [place] [address] TEL: FAX: Type of Test: 48 Hour [...] LAB CHEMISTRY METHOD 11/28/2024 12:04 PM EDT [facility] Triglycerides 53 0 - 150 mg/dL LAB CHEMISTRY METHOD 11/28/2024 12:04 PM EDT [facility] HDL 62 >=40 mg/dL LAB CHEMISTRY METHOD 11/28/2024 12:04 PM [facility] LDL Calculated 96 0 - 100 mg/dL LAB CHEMISTRY METHOD 11/28/2024 12:04 PM T [facility] Comment:Estimated LDL Calcul ated using equation: Total cholesterol - HDL cholesterol - (Triglycerides/5) VLDL Cholesterol Juan Diego 10.6 mg/dL LAB CHEMISTRY METHOD 11/28/2024 12:04 PM EDT [facility] Non HDL Chol. (LDL+VLDL) 107 <145 mg/dL LAB CHEMISTRY METHOD 11/28/2024 12:04 PM EDT [facility] Chol/HDL Ratio 2.7 0.0 - 4.4 LAB CHEMISTRY METHOD 11/28/2024 12:04 PM EDT [facility] Blood Venous blood specimen / Unknown Venipuncture / Unknown 11/28/2024 7:41 AM EDT 11/28/2024 7:41 AM EDT Angela Kohler MD LAB BLOOD ORDERABLES Final Resul t Performing Organization Address City/[facility]/ZIP Co de Phone Number [facility] [address] [place] [address], [place] [phone] * Hemoglobin A1c (11/28/2024 7:41 AM EDT) Pathologist [facility] Hemoglobin A1C 5.7 <6.5 % LAB CHEMISTRY METHOD 11/28/2024 12:36 PM EDT [facility] Mean Bld Glu Estim. 117 mg/dL LAB CHEMISTRY METHOD 11/28/2024 12:36 PM EDT [facility] Blood Venous blood specimen / Unknown Venipuncture / Unknown 11/28/2024 7:41 AM EDT 11/28/2024 7:41 AM EDT us Angela Kohler MD LAB BLOOD ORDERABLES Final Resul t [facility] [address] [place] [address], [place] [phone] * Hepatitis C Screening (11/11/2013) Pathologist [facility] Hepatitis C Screening abstracted us Steve Mane MD HEALTH MAINTENANCE Final Result from Last 3 Months or Most Recently Relevant to Health Maintenance Insurance [facility] Care Teams Healthcare Analyst Relationship Specialty Start Date End Date Angela Kohler MD [address] [place] [phone] PCP - General 03/04/99
--- OUTSIDE RECORDS SUMMARY | 2025-01-29 19:49 | XMS_ITS | Clinical Summary ---
Author Organization [facility] Address [address] [address] Phone Care Team Providers Care Wire Twisting Machine Operator Name Role Phone Pcp, Unknown Primary Care Provider Unavailabl e Allergies No known active allergies Medications atorvastatin (LIPITOR) 20 MG tablet Take 20 mg by mouth. 5 Active bisacodyl (DULCOLAX) 5 mg EC tablet Take 2 tablets by mouth right before beginning bowel prep. See instructions provided by the office 5 Active tadalafiL (CIALIS) 20 MG tablet Take 20 mg by mouth. 5 09/16/19 26 Active diclofenac sodium (VOLTAREN) 75 MG EC tablet Take 1 tablet (75 mg total) by mouth 2 (two) times a day. 30 tablet 5 Active nystatin-triam cinolone cream Apply to affect area twice a day for 7-14 days then as needed for rash. 5 01/10/20 25 Encounters Date Type Department Care Team Description 11/19/2024 8:50 AM EDT Office Visit [facility] at [address] [address] Tory Oropeza NP Acute pain of left shoulder (Primary Dx) 11/19/2024 8:27 AM EDT - 11/19/2024 11:59 PM EDT Hospital Encounter [facility] [address] [place] [phone] Tory Oropeza NP Discharge Disposition: Home or [...] 01/26/2009, Additional history exists COVID-19 VACCINE ( - 2024- season) 2024 06/13/2020, 05/22/2020 COLOGUARD 11/10/2027 11/09/2024 COLORECTAL CANCER SCREENING 11/10/2027 LIPID PANEL 07/18/2029 07/18/2024 Adult Td,Tdap Booster 12/04/2032 12/04/2022, 12/03/2 008 RSV VACCINE (1 - 1-dose 75+ [...] fracture or dislocation. Severe degenerative changes. Tory Oropeza MOUNTER HAND IMG XR UPPER EXTREMITY Fin al Result from Last 3 Months Insurance [facility] [phone] [facility] Care Teams Wire Twisting Machine Operator Relationship Specialty Start Date End Date Pcp, Unknown PCP - General 11/19/24 Additional Source Comments The information contained in this document represents components of the legal health record. It is not the complete legal health record.[facility]
== END 2025-01-29 17:05 | disposition home or self-care (01) ==
LOC: HO.MRI 17:04
PROVIDERS: PCP Internal Medicine; Visit Provider Physician Assistant
DX: M19.012 Primary osteoarthritis, left shoulder (principal)
CPT/HCPCS: 73221

== ENCOUNTER → 2025-01-29 17:12 | Outpatient (BNV) | payer OTHER, SELFPAY | PROVIDERS: PCP Internal Medicine; Visit Provider Radiology Diagnostic Radiology | DX: M19.012 Primary osteoarthritis, left shoulder (principal); M67.813 Other specified disorders of tendon, right shoulder | CPT/HCPCS: 73221 ==